=== PATIENT | female | born 1995 | race Two or more races ===

== ENCOUNTER 2017-08-31 10:16 | Emergency (ER) | payer SELFPAY ==
[~2017-08-31] VITALS: Ht 165.1 cm; Wt 72.6 kg
--- NOTE | 2017-08-31 10:25 | NUR ---
PT IS IN ROOM #1B. DR BAPTISTE EVALUATED THE PT.
[2017-08-31] MEDS ORDERED: predniSONE 10 MG TABLET PO ONE (10:30)
[2017-08-31] MEDS ORDERED: IPRATROPIUM BROMIDE 0.5 MG/2.5 ML NEBU NEB ONE (10:30)
[2017-08-31] MEDS ORDERED: ALBUTEROL SULFATE 2.5 MG/3 ML NEBU NEB ONE (10:30)
[2017-08-31] MEDS ORDERED: predniSONE 20 MG TABLET ONE (10:49)
[2017-08-31] MEDS ORDERED: ALBUTEROL SULFATE 2.5 MG/3 ML NEBU ONE (10:51)
--- NOTE | 2017-08-31 12:46 | NUR ---
PT WAS D/C TO HOME. D/C INSTRUCTIONS GIVEN TO THE PT. NO SOB. NO N/V. PT DENIES PAIN.
[2017-08-31 12:53] VITALS: BP 119/72
== END 2017-08-31 12:54 | disposition home or self-care (01) ==
LOC: ER 10:16
DX: J45.901 Unspecified asthma with (acute) exacerbation (principal)
CPT/HCPCS: 87400; A4663; J7512